=== PATIENT | female | born 1965 | race Caucasian/White ===

== ENCOUNTER 2021-03-21 15:47 | Emergency (ER) | payer SELFPAY ==
[~2021-03-21] VITALS: Ht 165.1 cm; Wt 110.0 kg
[2021-03-21] MEDS ORDERED: LABETALOL 5MG/ML SYR 20 MG/4 ML SYRINGE IV ONE (16:30)
[2021-03-21 16:40] LABS: BASOPHILS % 0.2 % (0.0-2.0); EOSINOPHILS % 0.8 % (0.0-5.0); HEMATOCRIT. 39.9 % (36.0-48.0); HEMOGLOBIN. 13.6 g/dL (12.0-16.0); LYMPHOCYTES % 20.9 % (20.0-50.0); MEAN CORPUSCULAR HEMOGLOBIN 28.7 pg (28.0-32.0); MEAN CORPUSCULAR VOLUME 84.1 fL (81.0-99.0); MEAN PLATELET VOLUME 7.9 fl (7.4-10.4); MONOCYTES % 6.6 % (2.0-8.0); NEUTROPHILS % 71.5 % (40.0-76.0); PLATELET 299 x1000/uL (130-400); RED BLOOD CELL COUNT 4.74 mill/uL (4.2-5.4); RED CELL DISTRIBUTION WIDTH 13.4 % (11.6-14.6)
[2021-03-21 16:47] LABS: CHLORIDE 105 mEq/L (98-107)
[2021-03-21] MEDS ORDERED: HYDRALAZINE 20MG/ML VIAL IV PRN (22:15)
[2021-03-21] MEDS ORDERED: DIPHENHYDRAMINE 50MG/ML VIAL IV PRN (22:15)
[2021-03-21] MEDS ORDERED: DEXTROSE 50% WATER 50ML SYRINGE IV PRN (22:15)
[2021-03-21] MEDS ORDERED: ONDANSETRON HCL 4MG/2ML INJ IV PRN (22:15)
[2021-03-21] MEDS ORDERED: ACETAMINOPHEN 325MG TABLET PO PRN ×2 (22:15)
[2021-03-21] MEDS ORDERED: LORAZEPAM 1MG TABLET PO PRN (22:15)
[2021-03-21] MEDS ORDERED: CLONIDINE 0.2MG TABLET PO PRN (22:30)
[2021-03-21] MEDS ORDERED: INSULIN GLARGINE UD 100 UNITS/ML SYR SUBCUT SCH (23:00)
[2021-03-22 00:25] VITALS: BP 132/55
[2021-03-22] MEDS ORDERED: SODIUM CHLORIDE 0.9% INJ 3ML FLUSH IVF SCH (06:00)
[2021-03-22] MEDS ORDERED: INSULIN LISPRO 100 UNITS/ML SUBCUT SCH (08:20)
[2021-03-22] MEDS ORDERED: METOPROLOL TARTRATE 50MG TABLET PO SCH (09:00)
[2021-03-22] MEDS ORDERED: METFORMIN HCL 500MG TABLET PO SCH (09:00)
[2021-03-22] MEDS ORDERED: LISINOPRIL 10MG TABLET PO SCH (09:00)
[2021-03-22] MEDS ORDERED: BLOOD SUGAR DIAGNOSTIC STRIP TEST SCH (09:00)
== END 2021-03-22 00:38 | disposition home or self-care (01) ==
LOC: ER 15:47 → EDBEDREQTM 21:46 → EDBEDREQ 21:46 → ER 03-22 00:38 → CANBEDREQ 03-22 03:39
DX: I10 Essential (primary) hypertension (principal); E11.9 Type 2 diabetes mellitus without complications; H66.92 Otitis media, unspecified, left ear; E03.9 Hypothyroidism, unspecified; E66.01 Morbid (severe) obesity due to excess calories; Z68.41 Body mass index [BMI] 40.0-44.9, adult
CPT/HCPCS: 36415; 70450; 71045; 80053; 83036; 83880; 84484; 85025; 93005; 96374; 99285; J1200; J3490; Z7610; J1815